=== PATIENT | male | born 1955 | race Caucasian/White ===

== ENCOUNTER 2020-11-10 20:46 | Emergency (ER) | payer OTHER ==
[2020-11-10] MEDS ORDERED: TETRACAINE 0.5% OPHTH SOLN 2 ML BOTTLE ONE (20:52)
[2020-11-10] MEDS ORDERED: FLUORESCEIN NA 1 EA STRIP ONE (20:53)
[2020-11-10 20:58] VITALS: BP 155/95; PULSE 81; TEMP 99.8; BMI 30.8
[2020-11-10] MEDS ORDERED: TOBRA 0.3%/DEXAMETH 0.1% OPHTHALMIC SUSP 2.5 ML BTL OD ONE (21:14)
[2020-11-10] MEDS ORDERED: TOBRA 0.3%/DEXAMETH 0.1% OPHTHALMIC SUSP 2.5 ML BTL ONE (21:16)
== END 2020-11-10 21:20 | disposition home or self-care (01) ==
LOC: FER 20:46
DX: H10.9 Unspecified conjunctivitis (principal)
CPT/HCPCS: 99283-25